=== PATIENT | female | born 1995 | race Caucasian/White ===

== ENCOUNTER 2021-09-10 12:00 | Emergency (ER) | payer OTHER, SELFPAY ==
[2021-09-10 12:14] VITALS: BP 124/57; PULSE 113; RESP 16; TEMP 37.7; O2SAT 98
--- NOTE | 2021-09-10 12:35 | ED.URI ---
HPI - URI/Sore Throat General Chief Complaint: Upper Respiratory Infection Stated Complaint: congestion,swollen lymph nodes and body aches Time Seen by Provider: 09/10/21 12:35 Source: patient, RN notes reviewed and old records reviewed Mode of arrival: ambulatory Limitations: no limitations History of Present Illness HPI Narrative: 27-year-old female who presents to [facility] with complaints of cough, body aches, ear pain, swollen lymph nodes with some congestion, and has also vomited x2 since Thursday. Patient is 23 weeks and did have COVID in May of 2020, has had COVID vaccinations and Booster and also had flu shot this year. Patient has been taking Tylenol for her symptoms. Related Data Allergies Allergy/AdvReac Type Severity Reaction Status Date / Time amoxicillin Allergy SORES IN Verified 09/10/21 12:26 MOUTH Review of Systems Review of Systems: CONSTITUTIONAL: Positive for fever, chills, or sweats. EYES: Denies visual changes, redness, or discharge. ENT: Positive for rhinorrhea, congestion, no sore throat,positive for otalgia. CARDIOVASCULAR: Denies chest pain, palpitations, or edema. RESPIRATORY: Positive for cough no dyspnea. GASTROINTESTINAL: Denies abdominal pain, positive for nausea and vomiting no diarrhea. GENITOURINARY: Denies dysuria or hematuria. SKIN: Denies rash or itching. MUSCULOSKELETAL: Denies back pain, joint pain,positive for body aches NEUROLOGIC: Denies headache, numbness, or weakness. PSYCHIATRIC: Denies anxiety or depression. All systems reviewed & are unremarkable except as noted in HPI and below PMFSH Past Medical History Medical History (Updated 09/10/21 @ 22:21 by Mercy Knutson NP) COVID-31 May 2020 Surgical History Surgical History (Updated 09/10/21 @ 22:22 by Mercy Knutson NP) No history of previous surgery Social History Social History (Updated 09/10/21 @ 12:45 by Mercy Knutson NP) Smoking status: Never smoker Alcohol intake: former Alcohol use details: social is presently Substance use: never Living arrangements: with family Gender identity (if verbalized by the patient): Female Comments At time of signature, agree with nursing past medical, surgical, social and family history. There is no relevant family history pertinent to the presenting complaint Exam Narrative: GENERAL: Well-appearing, well-nourished, and in no acute distress. HEAD: Normocephalic, atraumatic. EYES: PERRLA and EOMI. ENT: Nares red with clear rhinorrhea no epistaxis. Mucous membranes moist.TM's normal with good light reflex no drainage, throat red with no lesion or exudates or enlargement of tonsils, post nasal drainage NECK: Supple.lymphadenopathy CHEST: Clear to auscultation. No respiratory distress. SAO2 98% on room air HEART: Regular rate and rhythm. No murmur heard. Normal peripheral pulses. ABDOMEN: Soft, nontender, nondistended, normal active bowel sounds. EXTREMITIES: Normal range of motion. No edema.generalized body aches SKIN: Warm, dry, no rash. NEURO: No focal deficits. Alert and oriented x3. Course Course Level of Care: Express Care Visit Vital Signs Vital signs: Vital Signs Temperature 37.7 C H 09/10/21 12:14 Pulse Rate 113 H 09/10/21 12:14 Respiratory Rate 16 09/10/21 12:14 Blood Pressure 124/57 L 09/10/21 12:14 Pulse Oximetry 98 09/10/21 12:14 Temperature 37.7 C H 09/10/21 12:14 Pulse Rate 113 H 09/10/21 12:14 Respiratory Rate 16 09/10/21 12:14 Blood Pressure 124/57 L 09/10/21 12:14 Pulse Oximetry 98 09/10/21 12:14 MDM - URI/Sore Throat Differential Diagnosis Differential diagnosis: Likely upper respiratory infection, sinusitis, viral infection and influenza Medical Records Attestation: I reviewed the patient's medical records. Lab Data Attestation: I reviewed the patient's lab results. Lab results narrative: Influenza A positive, influenza B negative, Covid antigen negative Labs
== END 2021-09-10 12:59 | disposition home or self-care (01) ==
PROVIDERS: Emergency Provider Registered Nurse
DX: O99.512 Diseases of the respiratory system complicating pregnancy, second trimester (principal); Z3A.23 23 weeks gestation of pregnancy; J10.1 Influenza due to other identified influenza virus with other respiratory manifestations; Z20.822 Contact with and (suspected) exposure to COVID-19; Z86.16 Personal history of COVID-19
CPT/HCPCS: 87426; 87804; 99213; C9803; G0463

== ENCOUNTER 2021-11-06 01:09 | Observation (INO) | payer OTHER, SELFPAY ==
[2021-11-06] VITALS (11 sets, daily range): BP systolic 112–119; BP diastolic 62–77; PULSE 82–94; RESP 18; TEMP 36.6; BMI 23.8
[2021-11-06] MEDS: BETAMETHASONE SOD PHOS/ACETATE 30 MG/5 ML VIAL 12 MG IM (01:39)
[2021-11-06] MEDS: LACTATED RINGERS 1,000 ML 125 ML IV CONT (01:40)
[2021-11-06] MEDS: MAGNESIUM SULF 4 GM/WATER100ML 4 GM/100 ML BAG IVPB (01:41)
--- NOTE | 2021-11-06 01:44 | OBADM ---
This patient, Clara Fall, admitted to the OB room OB Post 116 for observation. Patient/family oriented to hospital policies and general routines including ID bracelet, bed and alarms, visiting hours, pain management, procedures, bathroom and other care routines, personal items, smoking policy, room service/diet, and visiting hours. Patient/Family are encouraged to report perceived risks to care and to ask questions if they do not understand what they are told or what they should do.
[2021-11-06 01:48] LABS: Glucose Point of Care 78 mg/dl (65-105)
[2021-11-06] MEDS: ceFAZolin 2 GM/D5W 50 ML 2 GM/50 ML BAG IVPB (01:53)
[2021-11-06] MEDS: MAGNESIUM SULF 20GM/WATER500ML 500 ML 50 MG IV CONT (02:10)
--- NOTE | 2021-11-06 02:20 | PM.IMHP ---
H&P: HPI History of Present Illness Date/Time: 11/06/21 02:20 26 y/o G1 at 31 weeks by LMP 04/03/21 giving EDC 01/08/22, c/w ultrasound 8w2d, here with gush of fluid at 0030. Gross ROM. Subsequent contractions. complicated by recent diagnosis of GDM. Also has anxiety, had influenza, and is rubella nonimmune. Transferred care to [place] at 14 5/7 weeks gestation. Chief Complaint: Water broke Review of Systems Review of Systems: All systems reviewed & are unremarkable except as noted in HPI and below PMFSH Past Medical History Medical History COVID-31 May 2020 Surgical History Surgical History No history of previous surgery Social History Social History Smoking status: Never smoker Alcohol intake: former Alcohol use details: social is presently Substance use: never Gender identity (if verbalized by the patient): Female Meds Home Medications and Allergies Home Medications Medication Instructions Recorded Confirmed Type ondansetron 4 mg PO Q6H PRN #20 tablet 09/10/21 Rx Allergies Allergy/AdvReac Type Severity Reaction Status Date / Time amoxicillin Allergy SORES IN Verified 09/10/21 12:26 MOUTH Vital Signs Vital Signs - 24 hr 11/06/21 01:30 11/06/21 01:31 11/06/21 01:42 Temperature 36.6 C Pulse Rate 88 90 85 Respiratory Rate 18 Blood Pressure 117/77 119/76 11/06/21 01:46 11/06/21 02:01 11/06/21 02:16 Temperature Pulse Rate 82 88 84 Respiratory Rate Blood Pressure 113/74 118/69 114/68 Exam Const: Orientation/consciousness: patient oriented x3 Other: Well-developed, well-nourished female in no acute distress. Neck: Thyroid: thyroid normal Lymphatic: no lymphadenopathy noted (in neck, axilla or inguinal nodes) Resp: Effort & Inspection: normal respiratory effort Auscultation: clear to auscultation bilaterally Cardio: Rate: regular rate Rhythm: regular rhythm Heart sounds: S1 normal heart sound present and S2 normal heart sound present GI: Other: ABD: Soft, nontender, gravid. NST 150 good variability. TOCO: contractions every 2-3 min. No guarding or rebound tenderness. No hepatosplenomegaly. Bedside ultrasound exam shows loera IUP, cephalic presentation, EFW 1735g. Fundal, posterior placenta. : General: Yes no CVA tenderness Other: Speculum exam: gross ROM. Cervix not able to be assessed visually. Gentle digital exam closed/50. Back/Spine/Pelvis: Back: no CVA tenderness Skin: General skin exam: normal color and no rashes or lesions noted Neuro: General: patient oriented x3 Extrem: Other: Extremities: nontender with no edema Psych: Mental Status: mental status grossly normal Affect: normal affect Assessment and Plan Assessment and plan (1) PROM (premature rupture of membranes): Code(s): O42.90 - Premature rupture of membranes, unspecified as to length of time between rupture and onset of labor, unspecified weeks of gestation Status: Acute Assessment and Plan: A: IUP at 31 weeks with PROM, contractions, GDM. P: Have started magnesium sulfate IV, Ancef, and betamethasone. Offered maternal transfer to [facility] for neonatology and perinatology services. I discussed the patient's case with Dr. Green, the [facility] MFM fellow. She has accepted the transfer. The patient and her partner agree to the transfer as well. (2) Gestational diabetes: Code(s): O24.419 - Gestational diabetes mellitus in , unspecified control Status: Acute
[2021-11-06 02:26] LABS: Basophils Absolute Auto 0.1 K/mm3 (0.0-0.1); Basophils Percent Auto 0.3 % (0.2-1.2); Eosinophils Absolute Auto 0.1 K/mm3 (0-0.3); Eosinophils Percent Auto 0.6 % (0-4.4); Hematocrit 30.3 % (37.0-47.0); Hemoglobin 9.9 g/dL (12.0-15.0); Immature Granulocyte Absolute 0.09 K/mm3 (0.00-0.031); Immature Granulocyte Percent A 0.6 % (0-0.5); Lymphocytes Absolute Auto 2.45 K/mm3 (0.9-3.2); Lymphocytes Percent Auto 15.6 % (18.3-44.2); Mean Corpuscular HGB Conc 32.7 g/dl (32-36); Mean Corpuscular Hemoglobin 28.9 pg (26-34); Mean Corpuscular Volume 88.3 fl (80-100); Mean Platelet Volume 10.4 fl (7.4-10.4); Monocytes Absolute Auto 0.9 K/mm3 (0.1-0.6); Monocytes Percent Auto 5.4 % (2.6-8.5); Neutrophils Absolute Auto 12.2 K/mm3 (1.3-6.7); Neutrophils Percent Auto 77.5 % (45.5-73.1); Platelet Count Result 272 k/mm3 (150-375); Red Blood Count 3.43 M/mm3 (4.2-5.4); Red Cell Distribution Width 12.8 % (11.5-14.5); White Blood Count 15.7 K/mm3 (4.5-10.0)
== END 2021-11-06 03:43 | disposition home or self-care (01) ==
LOC: ANHOBPP 01:15
PROVIDERS: Admitting Provider Obstetrics & Gynecology; Visit Provider Obstetrics & Gynecology
DX: O42.913 Preterm premature rupture of membranes, unspecified as to length of time between rupture and onset of labor, third trimester (principal); Z3A.31 31 weeks gestation of pregnancy; O24.419 Gestational diabetes mellitus in pregnancy, unspecified control
CPT/HCPCS: 36415; 82948; 85025; 96372; 96374; 96375; G0378; G0379; J0690; J0702; J3475; J7120

== ENCOUNTER 2025-04-18 14:10 | Observation (INO) | payer BC, SELFPAY ==
--- NOTE | ~2025-04-18 | US_ITS ---
Clinical history:CRISTIANA. Varible deceleration in office. EXAM:None available TECHNIQUE:Multiple static grayscale images and color Doppler images were obtained. Comparisons:None available FINDINGS: Single intrauterine at 31 weeks and 5 days by previous dating. heart rate is 1 54 bpm. Lies longitudinal. Vertex presentation. Placenta is anterior. CRISTIANA equals 23.55 cm. IMPRESSION: 1. Single live intrauterine at 31 weeks and 5 days by previous dating. Heart rate was 154 bpm 2. CRISTIANA equals 23.55 cm. Reviewed, dictated and finalized at location Q. IMPRESSION: 1. Single live intrauterine at 31 weeks and 5 days by previous dating . Heart rate was 154 bpm 2. CRISTIANA equals 23.55 cm.
--- NOTE | 2025-04-18 12:53 | OBADM ---
This patient, Clara Cagle, admitted to the OB room Labor/Delivery/Recovery 118 for observation. Patient/family oriented to hospital policies and general routines including ID bracelet, bed and alarms, visiting hours, pain management, procedures, bathroom and other care routines, personal items, smoking policy, room service/diet, and visiting hours. Patient/Family are encouraged to report perceived risks to care and to ask questions if they do not understand what they are told or what they should do.
[2025-04-18 14:25] VITALS: PULSE 96; O2SAT 100
[2025-04-18] MEDS: TERBUTALINE SULFATE 1 MG/ML VIAL 0.25 MG SUB-Q (14:25)
[2025-04-18 15:04] LABS: Fetal Fibronectin Negative
--- OUTSIDE RECORDS SUMMARY | 2025-04-18 15:17 | XMS_ITS | Clinical Summary ---
Author Organization [facility] Address [address] [place] [address] Care Team Providers Care Network Applications Specialist Name Role Phone Pcp, None Primary Care Provider Unavailabl e Source Comments [facility],non-owned Affiliates and Associated Physician Practices is amultiple site organization consisting of ambulatory clinics and hospital sitesin [place], [place], [place] and [place]. This disclosure is being madepursuant to the Care Everywhere program and may not contain all information available regarding this patient. Last updated 18.[facility] Allergies No known active allergies Medications * Be aware that medications may not be up to date on this document. Alwaysverify current medications with the patient. Vit-Fe Fumarate-FA ( vitamin) 28-0.8 MG tablet Take 1 (one) tablet by mouth once daily Active ondansetron (Zofran) 4 MG tablet Take 1 (one) tablet by mouth every 6 hours as needed for Nausea/Vomi ting Active Active Problems Problem Noted Date Diagnosed Date premature rupture of membranes, unspecified duration to onset of labor 11/06/2021 Diet controlled gestational diabetes mellitus (GDM) in third trimester 11/06/2021 Screening, , for anatomic survey CRISTIANA (amniotic fluid index) decreased Estimated Date of Delivery Comme nts Yes 06/15/2025 Based on last me nstrual period of 09/08/2024 Encounters Date Type Department Care Team Description 02/23/2025 11:20 AM CDT visit [facility] - [facility]EL[facility] [address] [place] [address] Everett Reese MD Wendel, Michael, MD [place]: 24w0d 02/23/2025 10:15 AM CDT Procedure visit [facility] - SENIOR COBOL DEVELOPER [address] [place] [address] Everett Reese MD History of delivery ; Choroid plexus cyst 02/23/2025 Travel 02/07/2025 7:29 AM CDT - 02/07/2025 11:59 PM CDT Hospital Encounter [facility] [address] [place], [place] [id number] Ivone Naranjo MD Discharge Disposition: Home or Self Care 01/24/2025 11:00 AM CDT visit [facility] - SENIOR COBOL DEVELOPER [address] [place] [address] Everett Reese MD [place]: 19w5d 01/24/2025 9:30 AM CDT Procedure visit [facility] - SENIOR COBOL DEVELOPER [address] [place] [address] Encounter for anatomic survey ([facility]) ; History of delivery, currently in second trimester ([facility]); Choroid plexus cyst of fetus affecting care of mother, antepartum, single or unspecified fetus ([facility]); Encounter for screening for cervical length ([facility]); History of premature rupture of membranes in previous , currently in second trimester ([facility]); Suspected placental problem not found; Low lying placenta nos or without hemorrhage, second trimester ([facility]) 01/24/2025 Travel from Last 3 Months Immunizations Immunization Administration Dates Next Due MMR 11/11/2021 TDAP (7yrs+) 11/11/2021(Deferred: Already administered this Flu season - given 11/09/2021),11/09/2021 Family History Medical History Relation Name Comments Diabetes - Type 2 Father Relation Name Status Comments Father Alive Mother Alive Social History Tobacco Use Types Packs/Day Years Used Date Smoking Tobacco: Never Smokeless Tobacco: Never Tobacco Cessation:Counseling Given: Not Answered Alcohol Use Standard Drinks/Week Comments Never 0 (1 standard drink = 0.6 oz pur e alcohol) PHQ-2 Answer Date Recorded Patient Health Questionnaire-2 Score 0 02/21/2025 Education Answer Date Recorded What is the highest level of school you have completed or the highest degree you have received? 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 Not on file Not on file Last Filed Vital Signs Vital Sign Reading Time Taken Comments Blood Pressure 100/80 02/23/2025 10:52 AM CDT Pulse 65 11/11/2021 11:05 PM CDT Temperature 36.6 C (97.9 F) 11/12/2021 8:45 AM CDT Respiratory Rate 18 11/12/2021 8:45 AM CDT Oxygen Saturation 98% 11/12/2021 8:45 AM CDT Inhaled Oxygen Concentration - - Weight 55.8 kg (123 lb) 02/23/2025 10:52 AM CDT Height 157.5 cm (5' 2) 02/23/2025 10:52 AM CDT Body Mass Index 22.5 02/23/2025 10:52 AM CDT Plan of Treatment Health Maintenance Due Date Last Done Comments HIV SCREENING 2012 HEPATITIS C SCREENING 03/25/2015 HEPATITIS B VACCINE (1 of 3 - 19+ 3-dose series) 2016 PAP SMEAR 2018 HPV VACCINE (1 - 3-dose SCDM series) 2024 OB-ONE HOUR GLUCOSE 03/09/2025 12/28/2024 COVID-19 VACCINE ( - season) 2025 INFLUENZA VACCINE (#1) 2025 , 07/13/2020, 07/08/2012, Additional history exists OB-TDAP CURRENT 03/16/20252021, 02/10/2012, 02/19/2010 Respiratory Syncytial Virus (RSV) Vaccine Pt: or over 60 yrs (1 - Risk 1-dose series) 04/20/2025 OB-GROUP B STREP SCREEN 05/11/2025 11/06/2021 DTAP/TDAP/TD VACCINES (2 - Td or Tdap) 11/10/2031 11/09/2021 ZOSTER VACCINE (1 of 2) 2047 DEPRESSION SCREENING Completed 12/13/2024 HIB VACCINE Aged Out No longer eligi ble based on patient's age to complete this topic MENINGOCOCCAL (Group B) VACCINE SHARED DECISION-MAKING Aged Out No longer eligible based on patient's age to complete this topic MENINGOCOCCAL GROUPS A/C/Y/W VACCINE Aged Out No longer eligible based on patient's age to complete this topic PNEUMOCOCCAL VACCINE Aged Out No long er eligible based on patient's age to complete this topic Procedures Procedure Name Priority Date/Time Associated Diagnosis Comments URINALYSIS - POINT OF CARE (AMB) [facility] Routine 02/23/2025 10:53 AM CDT History of delivery, currently in second trimester (HCC) SONOGRAM - COMPLETE Routine 02/23/2025 1 0:22 AM CDT History of delivery Choroid plexus cyst SONOGRAM - COMPLETE Routine 02/07/2025 7 :32 AM CDT premature rupture of membranes, unspecified duration to onset of labor (HCC) Encounter for screening for cervical length (HCC) Encounter for anatomic survey (HCC) Second (HCC) Screening, , for anatomic survey (HCC) URINALYSIS - POINT OF CARE (AMB) [facility] Routine 01/24/2025 10:25 AM CDT History of delivery, currently in second trimester (HCC) SONOGRAM - COMPLETE Routine 01/24/2025 9 :56 AM CDT History of delivery, currently in second trimester (HCC) Encounter for anatomic survey (HCC) GTT 1 HR (50G) GESTATIONAL SCREEN Routine 12/28/2024 10:05 AM CDT History of gestational diabetes in prior , currently (HCC) CULTURE STREP B STAT 11/06/2021 5:58 AM CDT premature rupture of membranes, unspecified duration to onset of labor from Last 3 Months or Most Recently Relevant to Health Maintenance Results * URINALYSIS - POINT OF CARE (AMB) [facility] (02/23/2025 10:53 AM CDT) Only the most recent of2 resultswithin the time period is included. Specific [place] UA 1.[address] [facility] [address] pH UA 7 [facility] [address] WBC UA neg [facility] [address] Nitrite UA neg [facility] [address] Protein UA trace [facility] [address] Glucose UA normal [facility] [address] Ketones UA POCT neg [facility] [address] Urobilinogen UA normal [facility] [address] Bilirubin UA POCT neg [facility] [address] Blood Urine POCT neg [facility] [address] Urine URINE / Unknown 02/23/2025 1 0:53 AM CDT Paige Garcia [facility] - POINT OF CARE OR DERABLES Final Result [facility] [address] [place] [address], [facility] [phone] * SONOGRAM - COMPLETE (02/23/2025 10:22 AM CDT) Only the most recent of3 resultswithin the time period is included. Linked Results Indication ======== History of PTL/PTD in previous , currently Hx PPROM/PTL/PTD @ 31w choroid plexus cyst LR NIPT with other poor OB history hx of GDMA2 History ====== OB History 2. Para 1 [id number] 1. live 11/10/21. Gest. age 31 w + 4 d. Weight 1,665 g. Sex of child: female. Details: Vaginal delivery; Chorioamnionitis PPROM/PTD, GDMA2 Lab Tests Test Date Result NIPT Low risk, Male Maternal Assessment Physical Exam Height 157 cm, 5 ft 2 in. Initial weight 49 kg, 107 lb. Initial BMI 19.57 kg/m Method ====== Transabdominal ultrasound. View: Sufficient ========= Zimmerman . Number of fetuses: 1 Dating ====== Date Details Gest. age ERIN LMP 09/08/2024 24 w + 0 d 06/15/2025 Stated ERIN 24 w + 0 d 06/15/2025 U/S 02/23/2025 based upon AC, BPD, Femur, HC 24 w + 2 d 06/13/2025 Assigned dating based on the LMP, selected on 12/28/2024 24 w + 0 d 06/15/2025 General Evaluation Cardiac activity present. FHR 144 bpm. movements: visualized. Presentation: vertex Placenta: Placental site: anterior Umbilical cord: Cord vessels: 3 vessel cord - previously documented. Insertion site: normal insertion - previously documented Amniotic fluid: Amount of AF: normal. MVP 4.3 cm Biometry BPD 60.0 mm 24w 3d 61% Hadlock HC 227.9 mm 24w 6d 64% Hadlock AC 196.0 mm 24w 2d 50% Hadlock Femur 41.1 mm 23w 2d 18% Hadlock Humerus 41.7 mm 25w 1d 76% Celso HC / AC 1.16 Weight Calculation: EFW 649 g 41% Hadlock EFW (lb,oz) 1 lb 7 oz EFW by Hadlock ([id number]) appropriate Growth Overview Exam date GA BPD (mm) HC (mm) AC (mm) FL (mm) HL (mm) EFW (g) 01/10/2025 17w 5d 40.7 77% 150.2 61% 129.2 73% 25.7 48% 24.2 51% 226 70% 01/24/2025 19w 5d 45.4 51% 171 41% 143.5 44% 30.6 34% 30.9 73% 302 38% 02/23/2025 24w 0d 60 61% 227.9 64% 196 50% 41.1 18% 41.7 76% 649 41% Anatomy The following structures appear normal: Head / Neck Right choroid plexus. Left choroid plexus. Abdomen Stomach. Kidneys. Bladder. sex: male. Impression ========= Single live intrauterine at 24w 0d in vertex presentation Fetus measures 23w 6d which is appropriate for established gestational age (EFW 41%, AC 50%) The amniotic fluid volume measurement normal No major malformations or aneuploidy markers were seen within the limitations of ultrasound. Comment ======== ultrasound alone cannot detect all structural, genetic, or functional , placental, or maternal abnormalities Follow-up ======== Follow up as clinically indicated. Coding ====== Diagnoses Z36.862: Cervical length screening O09.212: Supervision of with history of pre-term labor O09.292: Supervision of with other poor reproductive or obstetric history O35.03X0: Maternal care for (suspected) central nervous system malformation or damage in fetus, choroid plexus cysts O09.212: Supervision of with history of pre-term labor Procedures 82595: US Preg Uterus Follow Up People Pattern PACS Anatomical Region Laterality Modality Other 02/23/2025 10:2 2 AM CDT Everett Reese MD [facility] ORDERABLES Edited Result - Final * GTT 1 HR (50G) GESTATIONAL SCREEN (12/28/2024 10:05 AM CDT) Glucose Gestational Screen 119 <140 mg/dL [facility] Comment: Test Performed at: [facility] [address] [place] [address] CRISELDA STEVENSON MD Blood BLOOD SPECIMEN / Unknown 12/28/2024 10:05 AM CDT 12/28/2024 10:06 AM CDT us Lynne Casas MD LAB - CHEMISTRY ORDERABLES Fin al Result [facility] [address] [place] [address] * CULTURE STREP B (11/06/2021 5:58 AM CDT) Culture Strep B Negative for beta-hemolytic Streptococcus Group B [facility] 11/09/2021 7:11 AM CDT [facility] Microbiology MISCELLANEOUS SAMPLES / Unknown Collection / Unknown 11/06/2021 5:58 AM CDT 11/06/2021 6:02 AM CDT us Lynne Marlow MD LAB - MICROBIOL OGY ORDERABLES Final Result [facility] [address] [place] [address] [phone] from Last 3 Months or Most Recently Relevant to Health Maintenance Insurance [employer] [facility] Advance Directives * Full Code (Latest Code Status on File) Date Activated Date Inactivated Comments 11/09/2021 7:57 PM 11/12/2021 2:33 PM * Full Code Date Activated Date Inactivated Comments 11/06/2021 4:39 AM 11/09/2021 7:57 PM Care Teams Network Applications Specialist Relationship Specialty Start Date End Date Pcp, None [address] [place] [address] PCP - General 12/13/24
--- OUTSIDE RECORDS SUMMARY | 2025-04-18 15:17 | XMS_ITS | Data Portability ---
Author Organization [place] - [facility]- Address # [address] [place] [address] Assessment Encounter Date Assessment Date Assessment LastModified by Organization Details LastModified Time 04/30/2024 04/30/2024 Information regarding the particular vaccine that patient is receiving today was presented to the parent(s). All questions were answered Not available 04/30/2024 08:19:41 Plan of Treatment Reminders Order Date Submit Date Provider Last Modified By Organization Details Last Modified Time Details Appointments FLU SHOT 025 08:10AM NURSING SCHEDULE Not available Not available Not available Lab None record ed. Referral None record ed. Procedures None record ed. Surgeries None record ed. Imaging None record ed. Medication Orders None record ed. Patient TargetsNo targets recorded. Patient Instructions Encounter Date Encounter Id Patient Instructions Last Modified By Organization Details Last Modified Time 04/30/2024 [id number] influenza (flu) vaccine (inactivated or recombinant): what you need to know Not available 04/30/2024 08:19:58 Reason for Referral None Reported. Problems No Known Problems Medical Equipment None Reported. Allergies No known drug allergies Medications Name Sig Start Date Stop Date Status Note LastModified by Organization Details LastModified Time ofloxacin 0.3 % eye drops INSTILL 1 DROP IN AFFECTED EYE FOUR TIMES DAILY FOR 7 DAYS active Not Available Not Available No t Available oseltamivir 75 mg capsule TAKE 1 CAPSULE BY MOUTH TWICE DAILY active Not Available Not Available No t Available nitrofurantoin monohydrate/ma crocrystals 100 mg capsule TAKE 1 CAPSULE BY MOUTH TWICE DAILY FOR 5 DAYS active Not Available Not Available No t Available Vitals None Recorded Social History None recorded. Functional Status None recorded. Mental Status None recorded. Family History Nothing Reported. Medical History No medical history recorded. Gynecological HistoryNo gynecological history recorded. Obstetrics History GPAL:G 0 P 0 0 0 0 Immunizations Vaccine Type Date Status Note Provider Nam e and Address Organization Details Recorded Time Influenza, split virus, trivalent, PF 04/30/2024 completed ABEL Noble - [facility], 04/30/2024 12:53:42 Past Encounters Encounter ID Performer Location Encounter Start Date Encounter Closed Date Diagnosis/Indication Diagnosis SNOMED-CT Code Diagnosis ICD10 Code Diagnosis IMO Codes Diagnosis Note [id number] Corie Whitt MD PEDIATRIC [address] [address] 04/30/2024 08:05:57 04/30/2024 19:55:00 Active or passive immunization [id number] Z23 Health Concerns Section Related Observation LastModified by Organization Detai ls LastModified Time None Recorded Concern Status LastModified by Organization Details LastModified Time None Recorded Advance Directives Directive None Recorded Payers Insurance Date Sequence Insurance Name Policy Number Policy Weiss Covered Member ID Weiss Member ID Guarantor Name 04/14/2025 1 [facility] (PPO) [id number] Luis Enrique Cagle [id number] 06 Clara Cagle Notes Date Note Type Note Provider Name and Address Organization Details Recorded Time 04/30/2024 text/html [facility] Eligibility Screening RecordReported by Patient ABEL Raymundo - [facility], 04/30/2024 12:04:48 OBGyn Episode No OBEpisode recorded.
--- NOTE | 2025-05-05 03:03 | PM.OBTRLD ---
OB - Triage/Final Diagnosis Visit Information Comments/Additional reasons for admission: I have assessed the risk for this patient, Clara Cagle, and determined that she would benefit from observation care. Evaluation Laboratory results: Laboratory Tests 04/18/25 14:34 Fibronectin Negative Final Diagnosis (1) False labor: Code(s): O47.9 - False labor, unspecified Status: Acute
== END 2025-04-18 16:50 | disposition home or self-care (01) ==
LOC: ANHOBOP 14:22 → ANHLDR 14:24
PROVIDERS: Admitting Provider Obstetrics & Gynecology; Visit Provider Obstetrics & Gynecology
DX: O47.03 False labor before 37 completed weeks of gestation, third trimester (principal); Z3A.31 31 weeks gestation of pregnancy
CPT/HCPCS: 76815; 82731; 96372; G0378; G0379; J3105

== ENCOUNTER 2025-05-24 10:24 | Outpatient (RCR) | payer OTHER, SELFPAY ==
[2025-05-24 11:08] VITALS: BP 119/78; PULSE 97
== END 2025-05-30 07:17 | disposition other institution (70) ==
LOC: ANHOBOP 10:24
PROVIDERS: Visit Provider Obstetrics & Gynecology
DX: O26.643 Intrahepatic cholestasis of pregnancy, third trimester (principal); Z3A.36 36 weeks gestation of pregnancy
CPT/HCPCS: 59025

== ENCOUNTER 2025-05-26 15:11 | Observation (INO) | payer OTHER, SELFPAY ==
--- NOTE | 2025-05-26 14:37 | OBADM ---
This patient, Clara Cagle, admitted to the OB room OB Post 116 for observation. Patient/family oriented to hospital policies and general routines including ID bracelet, bed and alarms, visiting hours, pain management, procedures, bathroom and other care routines, personal items, smoking policy, room service/diet, and visiting hours. Patient/Family are encouraged to report perceived risks to care and to ask questions if they do not understand what they are told or what they should do.
[2025-05-26 15:00] VITALS: BMI 25.4
--- NOTE | 2025-05-26 16:35 | PM.OBTRLD ---
OB - Triage/Final Diagnosis Visit Information Comments/Additional reasons for admission: I have assessed the risk for this patient, Clara Cagle, and determined that she would benefit from observation care. Final Diagnosis (1) False labor: Code(s): O47.9 - False labor, unspecified Status: Acute
--- OUTSIDE RECORDS SUMMARY | 2025-05-26 20:17 | XMS_ITS | Clinical Summary ---
Author Organization [facility] Address [address] [place] [address] Care Team Providers Care Plasterer Tender Name Role Phone Pcp, None Primary Care Provider Unavailabl e Source Comments [facility],non-owned Affiliates and Associated Physician Practices is amultiple site organization consisting of ambulatory clinics and hospital sitesin [place], [place], [place] and [place]. This disclosure is being madepursuant to the Care Everywhere program and may not contain all information available regarding this patient. 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 Not on file Not [...] OB-ONE HOUR GLUCOSE 03/09/2025 12/28/2024 COVID-19 VACCINE (2023- season) 2025 INFLUENZA VACCINE (#1) 2025 , [...] CDT History of delivery Choroid plexus cyst GTT 1 HR (50G) GESTATIONAL SCREEN Routine 12/28/2024 10:05 AM CDT History of gestational diabetes in prior , currently (HCC) CULTURE STREP B STAT 11/06/2021 5:58 AM CDT premature rupture of membranes, unspecified duration to onset of labor from Last 3 Months or Most Recently Relevant to Health Maintenance Results * URINALYSIS - POINT OF CARE (AMB) [facility] (02/23/2025 10:53 AM CDT) Specific [place] UA 1.[address] [facility] [address] pH [...] 02/23/2025 1 0:53 AM CDT Paige Garcia REPAIRER [facility] - POINT OF CARE OR DERABLES Final Result [facility] [address] [place] [address], [facility] [phone] * SONOGRAM - COMPLETE (02/23/2025 10:22 AM CDT) Linked Results Indication ======== History of PTL/PTD in previous , currently Hx PPROM/PTL/PTD @ 31w choroid plexus cyst LR NIPT with other poor OB history hx of GDMA2 History ====== OB History 2. Para 1 [id number] 1. live 11/10/21. Gest. age 31 w [...] 1 lb 7 oz EFW by Hadlock ([id number]-FL) appropriate Growth Overview Exam date [place] BPD [...] of with history of pre-term labor Procedures 26616: US Preg Uterus Follow Up [facility] PACS Anatomical Region Laterality Modality Other 02/23/2025 10:2 2 AM CDT us Everett Reese MD [facility] ORDERABLES Edited Result - Final * GTT 1 HR (50G) GESTATIONAL SCREEN (12/28/2024 10:05 AM CDT) Glucose Gestational Screen 119 <140 mg/dL [facility] Comment: Test Performed at: [facility] [address] [place] [address] CRISELDA STEVENSON MD Blood BLOOD SPECIMEN / Unknown 12/28/2024 10:05 AM CDT 12/28/2024 10:06 AM CDT us Lynne Casas MD LAB - CHEMISTRY ORDERABLES Fin al Result [facility] [address] [place] [address] * CULTURE STREP B (11/06/2021 5:58 AM CDT) Culture Strep B Negative for beta-hemolytic Streptococcus Group B [facility] 11/09/2021 7:11 AM CDT [facility] Microbiology MISCELLANEOUS SAMPLES / Unknown Collection / Unknown 11/06/2021 5:58 AM CDT 11/06/2021 6:02 AM CDT us Lynne Marlow MD LAB - MICROBIOL OGY ORDERABLES Final Result Performing Organization Address City/[facility]/ZIP Co de Phone Number [facility] [address] [place] [address], [facility] [phone] from Last 3 Months or Most Recently Relevant to Health Maintenance Insurance [employer] Advance Directives * Full Code (Latest Code Status on File) Date Activated Date Inactivated Comments 11/09/2021 7:57 PM 11/12/2021 2:33 PM * Full Code Date Activated Date Inactivated Comments 11/06/2021 4:39 AM 11/09/2021 7:57 PM Care Teams Plasterer Tender Relationship Specialty Start Date End Date Pcp, None [address] [place] [address] PCP - General 12/13/24
--- OUTSIDE RECORDS SUMMARY | 2025-05-26 20:17 | XMS_ITS | Continuity of Care Document ---
Author Organization [place] - [facility] Address [address] [place] [phone] Assessment Encounter Date Assessment Date Assessment LastModified by Organization Details LastModified Time 04/22/2025 04/22/2025 Information regarding the particular vaccine that patient is receiving today was presented to the parent(s). All questions were answered [email or web address] Not available 04/17/2025 10:07:21 Plan of Treatment Reminders Order Date Submit Date Provider Last Modified By Organization Details Last Modified Time Details Appointments None record ed. Lab None record ed. Referral None record ed. Procedures None record ed. Surgeries None record ed. Imaging None record ed. Medication Orders None record ed. Patient TargetsNo targets recorded. Patient Instructions Encounter Date Encounter Id Patient Instructions Last Modified By Organization Details Last Modified Time 04/22/2025 [id number] influenza (flu) vaccine (inactivated or recombinant): what you need to know [email or web address] Not available 04/22/2025 08:39:55 Reason for Referral None Reported. Problems No [...] Recorded Time Influenza, split virus, trivalent, PF 4 completed Dorie raymond, [facility], 04/30/2024 12:53:42 Influenza, split virus, trivalent, PF 5 completed Dorie raymond, [facility], 04/22/2025 09:17:12 MMR 8 completed Not Available [facility] 04/22/2025 08:39:16 influenza, unspecified formulation 9 completed Not Available [facility] 04/22/2025 08:39:16 Tdap 2 completed Not Available [facility] 04/22/2025 08:39:16 meningococcal MCV4P 5 completed Not Available [facility] 04/22/2025 08:39:16 HPV9 6 completed Not Available [facility] 04/22/2025 08:39:16 HPV9 6 completed Not Available [facility] 04/22/2025 08:39:16 HPV9 7 completed Not Available [facility] 04/22/2025 08:39:16 Influenza, split virus, quadrivalent, PF 1 completed Not Available [facility] 04/22/2025 08:39:16 COVID-19, mRNA, LNP-S, PF, 100 mcg/0.5mL dose or 50 mcg/0.25mL dose 1 completed Not Available [facility] 04/22/2025 08:39:16 COVID-19, mRNA, LNP-S, PF, 100 mcg/0.5mL dose or 50 mcg/0.25mL dose 1 completed Not Available [facility] 04/22/2025 08:39:16 COVID-19, mRNA, LNP-S, PF, 100 mcg/0.5mL dose or 50 mcg/0.25mL dose 1 completed Not Available [facility] 04/22/2025 08:39:16 Influenza, split virus, quadrivalent, PF 3 completed Not Available [facility] 04/22/2025 08:39:16 Tdap 5 completed Not Available [facility] 04/22/2025 08:39:16 RSV, bivalent, protein subunit RSVpreF, diluent reconstituted, 0.5 mL, PF 5 completed Not Available [facility] 04/22/2025 08:39:16 Past Encounters Encounter ID Performer Location Encounter Start Date Encounter Closed Date Diagnosis/Indication Diagnosis SNOMED-CT Code Diagnosis ICD10 Code Diagnosis IMO Codes Diagnosis Note [id number] Corie Whitt [facility] [address] [place] [address] [address] [place] [address] 04/22/2025 08:10:58 04/24/2025 05:54:17 Active or passive immunization [id number] Z23 Health Concerns Section Related Observation LastModified by Organization Detai ls LastModified Time None Recorded Concern Status LastModified by Organization Details LastModified Time None Recorded Payers Encounter Date Sequence Insurance Name Policy Number Policy Weiss Covered Member ID Weiss Member ID Guarantor Name 04/22/2025 1 [facility] (PPO) [id number] Luis Enrique Cagle [id number] 06 Clara Cagle Notes Date Note Type Note Provider Name and Address Organization Details Recorded Time 04/22/2025 text/html [facility] Eligibility Screening RecordReported by Patient Corie Whitt MD [address] [place] [address] [address], [place], [address], [facility] - [facility], 04/22/2025 10:55:30 OBGyn Episode No OBEpisode recorded.
--- OUTSIDE RECORDS SUMMARY | 2025-05-26 20:17 | XMS_ITS | Data Portability ---
Author Organization [place] - [facility]- Address # [address] [place] [address] Assessment Encounter Date Assessment Date Assessment LastModified by Organization Details LastModified Time 04/30/2024 04/30/2024 Information regarding the particular vaccine that patient is receiving today was presented to the parent(s). All questions were answered Not available 04/30/2024 08:19:41 04/22/2025 04/22/2025 Information regarding the particular vaccine that patient is receiving today was presented to the parent(s). All questions were answered [email or web address] Not available 04/17/2025 10:07:21 Plan of Treatment [...] By Organization Details Last Modified Time 04/30/2024 [id number] influenza (flu) vaccine (inactivated or recombinant): what you need to know Not available 04/30/2024 08:19:58 04/22/2025 [id number] influenza (flu) vaccine (inactivated or recombinant): what you need to know [email or web address] Not available 04/22/2025 08:39:55 Reason for Referral [...] split virus, trivalent, PF 4 completed Dorie Beltrán null, [facility], 04/30/2024 12:53:42 Influenza, split virus, trivalent, PF 5 completed Dorie Beltrán null, [facility], 04/22/2025 09:17:12 MMR 8 completed Not Available [facility] 04/22/2025 08:39:16 influenza, unspecified formulation 9 completed Not Available [facility] 04/22/2025 08:39:16 Tdap 2 completed Not Available [facility] 04/22/2025 08:39:16 meningococcal MCV4P 5 completed Not Available [facility] 04/22/2025 08:39:16 HPV9 6 completed Not Available [facility] 04/22/2025 08:39:16 HPV9 6 completed Not Available [facility] 04/22/2025 08:39:16 HPV9 7 completed Not Available [facility] 04/22/2025 08:39:16 Influenza, split virus, quadrivalent, PF 1 completed Not Available [facility] 04/22/2025 08:39:16 COVID-19, mRNA, LNP-S, PF, 100 mcg/0.5mL dose or 50 mcg/0.25mL dose 1 completed Not Available [facility] 04/22/2025 08:39:16 COVID-19, mRNA, LNP-S, PF, 100 mcg/0.5mL dose or 50 mcg/0.25mL dose 1 completed Not Available [facility] 04/22/2025 08:39:16 COVID-19, mRNA, LNP-S, PF, 100 mcg/0.5mL dose or 50 mcg/0.25mL dose 1 completed Not Available [facility] 04/22/2025 08:39:16 Influenza, split virus, quadrivalent, PF 3 completed Not Available [facility] 04/22/2025 08:39:16 Tdap 5 completed Not Available [facility] 04/22/2025 08:39:16 RSV, bivalent, protein subunit RSVpreF, diluent reconstituted, 0.5 mL, PF 5 completed Not Available [facility] 04/22/2025 08:39:16 Past Encounters Encounter ID Performer Location Encounter Start Date Encounter Closed Date Diagnosis/Indication Diagnosis SNOMED-CT Code Diagnosis ICD10 Code Diagnosis IMO Codes Diagnosis Note [id number] [facility] [address] [place] [address] 04/30/2024 08:05:57 04/30/2024 19:55:00 Active or passive immunization [id number] Z23 [id number] Corie Whitt [facility] [address] [place] [phone] 04/22/2025 08:10:58 04/24/2025 05:54:17 Active or passive immunization [id number] Z23 Health Concerns Section Related Observation LastModified by Organization Detai ls LastModified Time None Recorded Concern Status LastModified by Organization Details LastModified Time None Recorded Advance Directives Directive None Recorded Payers Insurance Date Sequence Insurance Name Policy Number Policy Weiss Covered Member ID Weiss Member ID Guarantor Name 04/20/2025 1 [employer] (PPO) [id number] Luis Enrique Cagle [id number] 06 Clara Cagle Notes Date Note Type Note Provider Name and Address Organization Details Recorded Time 04/30/2024 text/html [facility] Eligibility Screening RecordReported by Patient ABEL Raymundo - [facility], 04/30/2024 12:04:48 04/22/2025 text/html [facility] Eligibility Screening RecordReported by Patient Corie Whitt MD [address] [place] [address] [address], [place], [address], [facility], 04/22/2025 10:55:30 OBGyn Episode No OBEpisode recorded.
== END 2025-05-26 16:51 | disposition home or self-care (01) ==
PROVIDERS: Admitting Provider Obstetrics & Gynecology; Visit Provider Obstetrics & Gynecology
DX: O47.1 False labor at or after 37 completed weeks of gestation (principal); Z3A.37 37 weeks gestation of pregnancy
CPT/HCPCS: G0378; G0379

== ENCOUNTER 2025-05-30 05:51 | Inpatient (IN) | payer OTHER, SELFPAY ==
[2025-05-30] VITALS (196 sets, daily range): BP systolic 94–153; BP diastolic 58–89; PULSE 44–198; RESP 18; TEMP 36.6–37; O2SAT 88–100; BMI 25.8
--- NOTE | 2025-05-30 06:16 | WPDANESEPP ---
Anes - Eval Pre Procedure Procedure: Labor epidural Date/Time: 05/30/25 06:16 Surgeon: Shefali Preop Diagnosis: Abdominal pain with contractions Pre Op Diagnosis: IOL Patient Data Age: 30 Gender: F Height: Weight: Allergies Allergy/AdvReac Type Severity Reaction Status Date / Time No Known Allergies Allergy Verified 05/24/25 11:20 Home Medications ?Medication ?Instructions ?Recorded ?Confirmed ?Type docosahexaenoic acid 200 mg mg PO 01/25/25 05/29/25 History capsule ( DHA) : gestational age HCG: positive Patient hx anesthesia problems: none Family hx anesthesia problems: none Results Review: All pre-operative results and documents have been reviewed as part of the pre-operative evaluation. [facility] Past Medical History Medical History Migraines and not yet delivered Intrahepatic cholestasis of History of gestational diabetes COVID-31 May 2020 Surgical History Surgical History No history of previous surgery Family History Family History Other Patient denies significant medical history Social History Social History Smoking status: Never smoker Alcohol intake: former Alcohol use details: social is presently Substance use: never Living arrangements: with family Gender identity (if verbalized by the patient): Female Spiritual care concerns: No Exam Day of Procedure 05/30/25 06:16 Patient weight: normal
[2025-05-30 06:51] LABS: Hematocrit 27.2 % (37.0-47.0); Hemoglobin 8.7 g/dL (12.0-15.0); Immature Granulocyte Percent A 0.8 % (0-0.5); Lymphocytes Absolute Auto 2.22 K/mm3 (0.9-3.2); Mean Corpuscular HGB Conc 32.0 g/dl (32-36); Mean Corpuscular Hemoglobin 26.8 pg (26-34); Mean Corpuscular Volume 83.7 fl (80-100); Nucleated Red Blood Cells Absolute Auto 0.000 K/mm3 (0.0-0.012); Nucleated Red Blood Cells Perc 0.0 % (0.0-0.2); Platelet Count Result 196 k/mm3 (150-375); Red Blood Count 3.25 M/mm3 (4.2-5.4); White Blood Count 9.9 K/mm3 (4.5-10.0)
[2025-05-30] MEDS: LACTATED RINGERS 1,000 ML 125 ML IV CONT ×2 (07:14→09:33)
[2025-05-30] MEDS: OXYTOCIN 30 UNITS/NS 500 ML 30 UNITS/500 ML BAG IV CONT (07:15)
[2025-05-30 07:34] LABS: Syphilis IgG/IgM Antibody Non-Reactive (Nonreactive)
--- NOTE | 2025-05-30 08:53 | P.HP_ITS ---
H&P: HPI History of Present Illness Date/Time: 05/30/25 08:53 Chief Complaint: Here for induction of labor. Narrative: 30 y/o at 37 5/7 weeks here for induction of labor due to intrahepatic cholestasis of . Her bile acids were measured at 60.5 umol/L, and she has intense itching all over. Review of Systems Review of Systems: All systems reviewed & are unremarkable except as noted in HPI and below PMFSH Past Medical History Medical History Migraines and not yet delivered Intrahepatic cholestasis of History of gestational diabetes COVID-31 May 2020 Surgical History Surgical History No history of previous surgery Family History Family History Other Patient denies significant medical history Social History Social History Smoking status: Never smoker Alcohol intake: former Alcohol use details: social is presently Substance use: never Lack of Transportation: No Lack of Food: Never True Current Housing: I Have Housing Concerned About Future Housing: No Difficulty Paying Gas/Electric Bills: No Difficulty Paying for Meds: No Currently Unemployed: No Education: Bachelor's Degree Difficulty w/ Childcare or Family Care: No Living arrangements: with family Gender identity (if verbalized by the patient): Female Spiritual care concerns: No Meds Home Medications and Allergies Home Medications ?Medication ?Instructions ?Recorded ?Confirmed ?Type docosahexaenoic acid 200 mg mg PO 01/25/25 05/29/25 Hi story capsule ( DHA) Allergies Allergy/AdvReac Type Severity Reaction Status Date / Time No Known Allergies Allergy Verified 05/30/25 06:51 Vital Signs Vital Signs - 24 hr 05/30/25 06:24 05/30/25 06:29 05/30/25 06:31 Pulse Rate 98 88 Blood Pressure 110/89 117/77 Pulse Oximetry 94 96 Oxygen Delivery 05/30/25 06:34 05/30/25 06:39 05/30/25 06:44 Pulse Rate Blood Pressure Pulse Oximetry 96 97 97 Oxygen Delivery 05/30/25 06:46 05/30/25 06:47 05/30/25 06:49 Pulse Rate 87 Blood Pressure 107/76 Pulse Oximetry 96 Oxygen Delivery Room Air 05/30/25 06:54 05/30/25 06:59 05/30/25 07:01 Pulse Rate 94 Blood Pressure 111/75 Pulse Oximetry 97 96 Oxygen Delivery 05/30/25 07:04 05/30/25 07:09 05/30/25 07:14 Pulse Rate Blood Pressure Pulse Oximetry 96 97 96 Oxygen Delivery 05/30/25 07:16 05/30/25 07:19 05/30/25 07:24 Pulse Rate 84 Blood Pressure 115/77 Pulse Oximetry 96 96 Oxygen Delivery 05/30/25 07:29 05/30/25 07:31 05/30/25 07:34 Pulse Rate 76 Blood Pressure 117/75 Pulse Oximetry 96 95 Oxygen Delivery 05/30/25 07:39 05/30/25 07:44 05/30/25 07:46 Pulse Rate 72 Blood Pressure 113/73 Pulse Oximetry 96 96 Oxygen Delivery 05/30/25 07:49 05/30/25 07:54 05/30/25 07:59 Pulse Rate Blood Pressure Pulse Oximetry 96 98 98 Oxygen Delivery 05/30/25 08:01 05/30/25 08:04 05/30/25 08:09 Pulse Rate 77 Blood Pressure 117/82 Pulse Oximetry 100 96 Oxygen Delivery 05/30/25 08:14 05/30/25 08:16 05/30/25 08:19 Pulse Rate 70 Blood Pressure 114/68 Pulse Oximetry 97 97 Oxygen Delivery 05/30/25 08:24 05/30/25 08:29 05/30/25 08:32 Pulse Rate 84 Blood Pressure 123/71 Pulse Oximetry 98 98 Oxygen Delivery 05/30/25 08:33 05/30/25 08:38 05/30/25 08:43 Pulse Rate Blood Pressure Pulse Oximetry 94 97 97 Oxygen Delivery 05/30/25 08:46 05/30/25 08:48 Pulse Rate 71 Blood Pressure 129/78 Pulse Oximetry 99 Oxygen Delivery Exam Const: Other: Well-developed, well-nourished female in no acute distress. Neck: Other: Neck: Trachea midline, no thyromegaly or masses. Resp: Other: Lungs: Normal respiratory effort. Clear to auscultation bilaterally. Cardio: Other: Heart: Regular rate and rhythm with normal S1-S2. GI: Other: ABD: Soft, nontender, nondistended, gravid. No guarding or rebound tenderness. No hepatosplenomegaly. NST reactive. TOCO: irregular contractions. : Other: Cervix:2-3/50/-2. AROM with clear fluid. Vertex. Back/Spine/Pelvis: Other: Back: No CVA tenderness. Skin: Other: Skin: No lesions, rashes or ulcers noted. Extrem: Other: Extremities: nontender with no edema Psych: Other: Mental status grossly normal, with normal mood and affect. H&P: Results Labs Labs: Short CBC 05/30/25 Range/Units 06:44 WBC 9.9 (4.5-10.0) K/mm3 Hgb 8.7 L (12.0-15.0) g/dL Hct 27.2 L (37.0-47.0) % Plt Count 196 (150-375) k/mm3 Assessment and Plan Assessment and plan (1) Term : Code(s): Z34.90 - Encounter for supervision of normal , unspecified, unspecified trimester Status: Acute Assessment and Plan: A: IUP at 37 5/7 weeks with cholestasis and elevated bile acids. P: We have reviewed risks and benefits associated with induction of labor, including risks associated with prematurity. She and her desire ind uction. Oxytocin. Anticipate . (2) Intrahepatic cholestasis of : Qualifiers: Trimester: third trimester Qualified Code(s): O26.643 - Intrahepatic cholestasis of , third trimester Code(s): O26.649 - Intrahepatic cholestasis of , unspecified trimester Status: Acute
--- NOTE | 2025-05-30 12:14 | PM.OBPNLAB ---
Pain Control Date/time seen: 05/30/25 12:14 Comments: Comfortable with epidural. Pelvic Exam Dilation (cm): 4 Effacement (%): 80 station: -2 Contractions Contraction frequency: 3 Status status: Category l Assessment and Plan Pitocin rate (mU/min): 8 Comments: IUPC placed. Continue induction of labor.
[2025-05-30] MEDS: ONDANSETRON INJ 4 MG/2 ML VIAL IV PUSH (14:17)
--- NOTE | 2025-05-30 16:56 | PM.OBPNLAB ---
Pain Control Date/time seen: 05/30/25 16:56 Comments: Comfortable. Pushing well. Pelvic Exam Dilation (cm): 10 Effacement (%): 100 station: +1 Contractions Contraction frequency: 3 Status status: Category ll Assessment and Plan Pitocin rate (mU/min): 8 Comments: Continue pushing.
--- NOTE | 2025-05-30 17:38 | PM.OBPRVD ---
OB - Vaginal Delivery Note Procedure Delivery date: 05/30/25 Induction method: Per Pitocin Protocol Delivery augmentation: Rupture of Membranes Delivery monitor: External FHT, External Uterine and Internal Uterine Route of delivery: Episiotomy description: Midline Delivery repair: vicryl (3-0) Specimen: Yes (Cord blood) Quantitative Blood Loss (ml): 200 Anesthesia type: Epidural Disposition: PACU Complications: None Narrative: 30 y/o at 37 5/7 weeks gestation with intrahepatic cholestasis of who presented to the hospital for induction of labor. Oxytocin was administered intravenously. Amniotomy was performed with return of clear fluid. She received an epidural for pain control. Her labor progressed and her cervix dilated completely. She pushed with good effort. A midline episiotomy was made and the 's head delivered to the perineum, followed by the body. The nose and mouth were bulb suctioned. After a delay, the cord was clamped and cut. The infant was handed off the field. Cord blood was collected. The placenta delivered spontaneously and was grossly normal in appearance. The usual 3 vessel cord was noted. The MLE was noted to be free of extension. This was reapproximated using 3 0 Vicryl in the usual layered fashion. Excellent hemostasis resulted as did excellent reapproximation of the normal anatomy. Needle and instrument counts were correct. The patient was taken to recovery room in stable condition. The went to the nursery in stable condition. I was present and scrubbed for the entire delivery. [place] Baby Date of : 05/30/25 Time of : 17:19 Gestational Age by Date: 37 Infant gender: Male presentation: vertex position: Left Occiput Anterior Placenta delivery description: Spontaneous Cord Vessel Description: 3 Vessels and Delayed Cord Clamping
--- NOTE | 2025-05-30 17:40 | PM.OBDSVD ---
DS: Admitting Diagnosis Discharge Date 06/01/25 Admitting Diagnosis IUP at 37 5/7 weeks Intrahepatic cholestasis of DS: Discharge Diagnosis Discharge Diagnosis (1) (normal spontaneous vaginal delivery): Code(s): O80 - Encounter for full-term uncomplicated delivery Status: Acute (2) Intrahepatic cholestasis of : Qualifiers: Trimester: third trimester Qualified Code(s): O26.643 - Intrahepatic cholestasis of , third trimester Code(s): O26.649 - Intrahepatic cholestasis of , unspecified trimester Status: Acute OB - DS: Summary OB Procedures : None OB Procedures Intrapartum: Spontaneous Vag Delivery OB Procedures: : None Peripartum Data Episiotomy description: Midline Time Spent with Patient Time attestation: Total time spent providing and/or coordinating discharge services: DS: Data Data Completed and Pending Labs on day of discharge: Labs from last 24 hours 05/30/25 06:44 WBC 9.9 RBC 3.25 L Hgb 8.7 L Hct 27.2 L MCV 83.7 MCH 26.8 MCHC 32.0 RDW 13.2 Plt Count 196 MPV 11.1 H Immature Gran % (Auto) 0.8 H Neut % (Auto) 70.1 Lymph % (Auto) 22.5 [place] % (Auto) 5.3 Eos % (Auto) 0.9 Baso % (Auto) 0.4 Lymph # (Auto) 2.22 [place] # (Auto) 0.5 Eos # (Auto) 0.1 Baso # (Auto) 0.0 Abs Immat Gran (auto) 0.08 H Absolute Neuts (auto) 6.9 H Absolute Nucleated RBC 0.000 Nucleated RBC % 0.0 Syphilis IgG/IgM Ab Non-reactive Blood Type B Positive Antibody Screen Negative Discharge Plan Discharge Attending physician on discharge: Arun Meehan Discharging Clinician: Arun Meehan Patient Disposition: Home Activity: pelvic rest Diet: regular Discharge Instructions: Call or return if temperature above 100.4? F, increased abdominal pain, increased vaginal bleeding or any new problems. Patient Language: Tongan Stand Alone Forms: General Discharge Information Follow-up/Referrals: Arun Meehan MD [Physician, TRANSPORTATION ENGINEERING TECHNICIAN] - 6 Weeks Discharge Medications: New ibuprofen 600 mg tablet 600 mg PO Q6H PRN (Reason: cramps) Qty: 30 0RF ferrous sulfate 325 mg (65 mg iron) tablet 325 mg PO DAILY Qty: 30 0RF Continued DHA 200 mg capsule PO Date of admission: 05/30/25 05:51 Primary Care Provider: UNKNOWN,DOCTOR Admitting Provider: Arun Meehan Attending physician on admission: Arun Meehan Condition: Stable
[2025-05-30] MEDS: OXYTOCIN 30 UNITS/NS 500 ML 30 UNITS/500 ML BAG 125 UNITS IV CONT (17:55)
[2025-05-30] MEDS: BENZOCAINE 20% AER SPR (*SP) 56 GM CAN 1 SPRAY TOPICAL (21:11)
[2025-05-30] MEDS: WITCH HAZEL 40 PADS 1 PAD TOPICAL (21:11)
--- NOTE | 2025-05-30 21:26 | OBPPTRN ---
Patient transferred to post room #282 via wheelchair. Support person present. Oriented to unit, room, information board, rooming in, admission packet and security measures. Patient verbalizes understanding.
[2025-05-30] MEDS: IBUPROFEN 600 MG TABLET PO (21:30)
[2025-05-30] MEDS: ACETAMINOPHEN 325 MG TABLET 650 MG PO (21:30)
[2025-05-31] MEDS: IBUPROFEN 600 MG TABLET PO ×3 (04:00→19:08)
[2025-05-31] MEDS: ACETAMINOPHEN 325 MG TABLET 650 MG PO ×3 (04:00→19:09)
[2025-05-31 04:15] VITALS: BP 119/76; PULSE 63; RESP 16; TEMP 36.7; O2SAT 99
[2025-05-31 05:18] LABS: Hematocrit 24.4 % (37.0-47.0); Hemoglobin 7.8 g/dL (12.0-15.0)
[2025-05-31 05:42] LABS: Alanine Aminotransferase 272 U/L (6-35); Albumin Level 2.7 g/dL (3.5-5.1); Alkaline Phosphatase 226 U/L (38-126); Anion Gap 4 mmol/L (4-12); Aspartate Amino Transferase 234 U/L (14-36); Bilirubin,Total 0.7 mg/dL (0.2-1.3); Blood Urea Nitrogen 11 mg/dL (7-17); Calcium 8.2 mg/dL (8.4-10.2); Carbon Dioxide 20 mmol/L (22-30); Chloride 109 mmol/L (98-107); Estimated CRCL calculation 75 ml/min; Estimated Glomerular Filt Rate > 60; Glucose 76 mg/dL (65-110); Potassium 4.0 mmol/L (3.4-5.0); Sodium 133 mmol/L (137-145); Total Protein 5.3 g/dL (6.3-8.2)
[2025-05-31 07:26] VITALS: BP 114/77; PULSE 61; RESP 13; TEMP 36.5; O2SAT 99
[2025-05-31] MEDS: DOCUSATE SODIUM 100 MG CAPSULE PO ×2 (07:50→19:09)
[2025-05-31] MEDS: MULTIVIT/MIN/PREN/FOL AC/IRON TABLET 1 TAB PO (07:50)
--- NOTE | 2025-05-31 08:31 | P.PNOB_ITS ---
OB - PN: Subj Subjective Date/time seen: 05/31/25 08:31 Narrative: Episiotomy site sore. She would like a circumcision for her son. OB - PN: Obj Data Labs 05/31/25 03:56 05/31/25 03:56 Labs: Laboratory Results - last 24 hr 05/31/25 03:56 Hgb 7.8 L Hct 24.4 L Sodium 133 L Potassium 4.0 Chloride 109 H Carbon Dioxide 20 L Anion Gap 4 BUN 11 Creatinine 0.77 Estim Creat Clear Calc 75 Estimated GFR > 60 Glucose 76 Calcium 8.2 L Total Bilirubin 0.7 AST 234 H ALT 272 H Alkaline Phosphatase 226 H Total Protein 5.3 L Albumin 2.7 L OB - PN A/P Plan day: 1 Comments: A: PPD#1, doing well. P: Reviewed circ. Routine care. Exam 2 Psych: Other: AVSS ABD soft, nontender, fundus firm EXT nontender
--- NOTE | 2025-05-31 08:37 | PC.NURSE ---
On 05/31/25, the student, Dorie Perez, provided care and completed [facility] documentation on this patient. I have reviewed the student's documentation and agree with the findings.
[2025-05-31 12:18] VITALS: BP 116/72; PULSE 73; RESP 16; TEMP 36.5; O2SAT 99
--- NOTE | 2025-05-31 13:40 | PC.NURSE ---
Mother verbalizes she is able to independently latch with appropriate positioning and alignment. She denies any nipple discomfort and is responsively . Infant is currently meeting outcomes for weight, output, jaundice, blood sugar and feeding frequencies of 8-12 times in 24 hours. Mother declines any additional assistance or education at this time. Mother is encouraged to call for assistance if her infant doesn?t latch, pain with latching, questions or concerns. Mother voiced understanding of information shared along with the mom/baby guide for an additional resource. Reported to the Primary RN.
[2025-05-31 20:00] VITALS: BP 130/86; PULSE 76; RESP 18; TEMP 36.9; O2SAT 100
[2025-06-01] MEDS: IBUPROFEN 600 MG TABLET PO ×2 (00:27→09:06)
[2025-06-01] MEDS: ACETAMINOPHEN 325 MG TABLET 650 MG PO ×2 (00:28→09:05)
[2025-06-01 08:15] VITALS: BP 115/75; PULSE 72; RESP 16; TEMP 36.7; O2SAT 98
--- NOTE | 2025-06-01 09:03 | P.PNOB_ITS ---
OB - PN: Subj Subjective Date/time seen: 06/01/25 0720 Narrative: Pain OK. Would like to go home. OB - PN: Obj Data Labs 05/31/25 03:56 05/31/25 03:56 OB - PN A/P Plan day: 2 Comments: A: PPD#2, doing well. P: Home to f/u 6 weeks. Exam 2 Psych: Other: AVSS ABD soft, nontender, fundus firm EXT nontender
[2025-06-01] MEDS: DOCUSATE SODIUM 100 MG CAPSULE PO (09:06)
[2025-06-01] MEDS: MULTIVIT/MIN/PREN/FOL AC/IRON TABLET 1 TAB PO (09:06)
--- NOTE | 2025-06-01 10:34 | PC.NURSE ---
Consulted with mother concerning needs and she shared her ability to independently latch infant optimally, she did experience some nipple soreness when infant cluster fed last night. Mother is feeding appropriately for growth of and understands stimulating to eat if needed. Infant has had appropriate feedings in the last 24 hours meets the outcomes for weight, output, blood sugar and jaundice at this time. Reinforced understanding of milk production, transition of milk, signs of adequate intake, transition of stool, prevention/relief of engorgement, plugged ducts, mastitis, responsive watching for feeding cues, the different methods of stimulating to breastfeed 1-3 hours after the start of the last feeding, community resources, and when to call a provider using the resource of the feeding sheet along with the mom and baby guide. Mother voiced understanding of the information shared, is confident to continue effectively her at home, when to call for assistance, denies any additional assistance or education at this time. Reported to the Primary RN.
[2025-06-02 10:36] VITALS: BP 123/72; PULSE 86; RESP 18; TEMP 37; O2SAT 100
== END 2025-06-01 12:17 | disposition home or self-care (01) | DRG 807 ==
LOC: ANHLDR 17:42 → ANHOB2 21:28
PROVIDERS: Admitting Provider Obstetrics & Gynecology; Visit Provider Obstetrics & Gynecology
DX: O26.643 Intrahepatic cholestasis of pregnancy, third trimester (principal); Z37.0 Single live birth; Z3A.37 37 weeks gestation of pregnancy; O70.9 Perineal laceration during delivery, unspecified
CPT/HCPCS: 36415; 80053; 85014; 85018; 85025; 86593; 86850; 86900; 86901; A9270; J2405; J2590; J2795; J7120